=== PATIENT | male | born 2000 | race Caucasian/White ===

== ENCOUNTER → 2021-09-27 14:48 | Outpatient (CLI) | payer BC, SELFPAY ==
--- NOTE | ~2021-09-27 | XR_ITS ---
XR abdomen/kub 1V 09/27/2021 15:37 INDICATION: Abdominal pain TECHNIQUE: KUB COMPARISON: None FINDINGS: Bowel gas pattern is normal. Moderate colonic fecal loading. There is no evidence of free a ir, mass, organomegaly, ascites or obstruction. No abnormal calculi are seen. The bones appear inta ct. IMPRESSION: 1: No acute abdominal abnormality identified. Reviewed, dictated and finalized at location A.
== END ==
PROVIDERS: PCP Family Medicine; Visit Provider Physician Assistant Medical
DX: R10.9 Unspecified abdominal pain (principal)
CPT/HCPCS: 74018

== ENCOUNTER → 2022-04-06 15:40 | Outpatient (CLI) | payer BC, SELFPAY ==
--- NOTE | ~2022-04-06 | XR_ITS ---
EXAMINATION: XR chest 2V 04/06/2022 15:49 INDICATION: Chest pain PROCEDURE: 2 view chest COMPARISON: No prior studies for comparison. FINDINGS: The lungs are clear. The cardiomediastinal silhouette is within normal limits. There are no pleural effusions. There is no pneumothorax suspected. IMPRESSION: 1: NO ACUTE CARDIOPULMONARY DISEASE. Reviewed, dictated and finalized at location B. [employer]
== END ==
PROVIDERS: PCP Family Medicine; Visit Provider Physician Assistant
DX: R07.89 Other chest pain (principal)
CPT/HCPCS: 71046

== ENCOUNTER → 2022-07-08 11:24 | Outpatient (CLI) | payer BC, SELFPAY ==
--- NOTE | ~2022-07-08 | CT_ITS ---
Non-contrast Head CT History: Headache Technique: Axial non-contrast imaging of the brain was performed. Dose reduction technique was used on this scan by utilizing automated exposure control and iterative reconstruction technique. The dose -length product (DLP) was 599.57 mGy-cm. Findings: There is no evidence of intracranial hemorrhage, mass lesion, or acute infarct. Brain par enchyma appears normal. The ventricles and subarachnoid spaces are normal in size. The calvarium ap pears normal. There is extensive bilateral ethmoid and frontal sinus disease. The remaining visualize d paranasal sinuses and mastoid air cells are clear. Impression: No intracranial abnormality seen. Sinus disease, as above. Reviewed, dictated and finalized at [facility]. TENDER Impression: No intracranial abnormality seen. Sinus disease, as above.
== END ==
PROVIDERS: PCP Family Medicine; Visit Provider Physician Assistant
DX: R51.9 Headache, unspecified (principal)
CPT/HCPCS: 70450

== ENCOUNTER 2022-12-16 16:58 | Emergency (ER) | payer BC, SELFPAY ==
[2022-12-16 17:07] VITALS: BP 115/86; PULSE 79; RESP 20; TEMP 37.4; O2SAT 97
--- NOTE | 2022-12-16 17:20 | ED.WOUNDLAC ---
HPI - Wound/Laceration General Chief Complaint: Wound/Laceration Stated Complaint: DOG BITE Time Seen by Provider: 12/16/22 17:20 Source: patient Mode of arrival: ambulatory Limitations: no limitations History of Present Illness HPI narrative: 22-year-old male presents stating that last night while at a friend's house the dog had his mouth on the patient's left wrist. Patient states that he thought he had a dog bite but checked his skin and he could see no break in the skin. He states he talked about the situation with several his friends and getting conflicting advice. States he has been told he needs antibiotic and rabies vaccine and other people told him that he needs no treatment due to no break in skin. Tetanus up-to-date. All systems reviewed and negative except as noted above. Related Data Home Medications Medication Instructions Recorded Confirmed No Home Medications 12/16/22 12/16/22 Allergies Allergy/AdvReac Type Severity Reaction Status Date / Time No Known Allergies Allergy Verified 12/16/22 17:04 Review of Systems Review of Systems: CONSTITUTIONAL: Denies fever, chills, or sweats. EYES: Denies visual changes, redness, or discharge. ENT: Denies rhinorrhea, congestion, sore throat, or otalgia. CARDIOVASCULAR: Denies chest pain, palpitations, or edema. RESPIRATORY: Denies cough or dyspnea. GASTROINTESTINAL: Denies abdominal pain, nausea, vomiting, or diarrhea. GENITOURINARY: Denies dysuria or hematuria. SKIN: Denies rash or itching. MUSCULOSKELETAL: Denies back pain, joint pain, or myalgia. NEUROLOGIC: Denies headache, numbness, or weakness. PSYCHIATRIC: Denies anxiety or depression. All other systems reviewed are negative, except as documented in HPI. [facility] Past Medical History Medical History Encounter for colonoscopy following colon polyp removal Eustachian tube dysfunction Healthy adult Right flank pain Family History Family History Mother Healthy adult Father Healthy adult Other Asthma Social History Social History Smoking status: Never smoker Second hand tobacco smoke exposure: No Alcohol intake: current Drinks per week: 1 Substance use: never Substance use type: does not use Lack of Transportation: No Lack of Food: Never True Current Housing: I Have Housing Concerned About Future Housing: No Difficulty Paying Gas/Electric Bills: No Difficulty Paying for Meds: No Currently Unemployed: Decline to Answer Education: High School Diploma/GED Difficulty w/ Childcare or Family Care: No Living arrangements: with family Occupation/Education: student Gender identity (if verbalized by the patient): Male Spiritual care concerns: No Agree to blood products: Yes Comments At time of signature, agree with nursing past medical, surgical, social and family history. There is no relevant family history pertinent to the presenting complaint. Exam Narrative: GENERAL: This is a well-nourished, well-developed patient, in no apparent distress. HEAD: normocephalic, atraumatic. EYES: PERRL. Sclera clear/white. Vision is grossly intact. EARS: External ears normal NOSE: External nose normal NECK: Neck supple, non-tender without lymphadenopathy, masses or thyromegaly. CARDIOVASCULAR: Regular rate and rhythm without murmurs, gallops, or rubs. RESPIRATORY: Clear to auscultation. Breath sounds equal bilaterally. No wheezes, rales, or rhonchi. SKIN: warm, Dry, intact with no suspicious lesions or rash, good texture and turgor. No abnormalities noted to left wrist concerning for dog bite. NEURO: awake, alert, and oriented to person, place and time. There were no obvious focal neurologic abnormalities. EXTREMITIES: No joint tenderness, effusion, or edema noted. Course Course Level of Care:
== END 2022-12-16 17:29 | disposition home or self-care (01) ==
PROVIDERS: Emergency Provider Nurse Practitioner Family; PCP Family Medicine
DX: Z03.89 Encounter for observation for other suspected diseases and conditions ruled out (principal)
CPT/HCPCS: 99211; G0463

== ENCOUNTER 2023-02-08 09:56 | Emergency (ER) | payer BC, SELFPAY ==
[2023-02-08 10:46] VITALS: BP 104/73; PULSE 92; RESP 16; TEMP 36.8; O2SAT 100
--- NOTE | 2023-02-08 12:03 | ED.URI ---
HPI - URI/Sore Throat General Chief Complaint: Upper Respiratory Infection Stated Complaint: SCRATCHY THROAT Time Seen by Provider: 02/08/23 11:56 Source: patient and RN notes reviewed Mode of arrival: ambulatory Limitations: no limitations History of Present Illness HPI Narrative: Patient presents today complaining of scratchy throat, nasal congestion, and fatigue since yesterday afternoon. Denies fever, cough, rhinorrhea, known sick contacts. Denies any pain. He has tried no [id number] treatment prior to arrival. States he has been traveling on airplanes over the past couple of days. Related Data Home Medications Medication Instructions Recorded Confirmed No Home Medications 12/16/22 02/08/23 Allergies Allergy/AdvReac Type Severity Reaction Status Date / Time No Known Allergies Allergy Verified 02/08/23 10:38 Review of Systems Review of Systems: CONSTITUTIONAL: Denies body aches, fever, chills, or sweats.+ fatigue EYES: Denies visual changes, redness, or discharge. ENT: Denies rhinorrhea, sore throat, or otalgia.+ scratchy throat, nasal congestion CARDIOVASCULAR: Denies chest pain, palpitations, or edema. RESPIRATORY: Denies cough or dyspnea. GASTROINTESTINAL: Denies abdominal pain, nausea, vomiting, or diarrhea. GENITOURINARY: Denies dysuria or hematuria. SKIN: Denies rash, itching, or wounds. MUSCULOSKELETAL: Denies back pain, joint pain, or myalgia. NEUROLOGIC: Denies headache, numbness, tingling, or weakness. PSYCH: Denies depression or anxiety. [facility] Past Medical History Medical History Encounter for colonoscopy following colon polyp removal Eustachian tube dysfunction Healthy adult Right flank pain Family History Family History Mother Healthy adult Father Healthy adult Other Asthma Social History Social History Smoking status: Never smoker Second hand tobacco smoke exposure: No Alcohol intake: current Drinks per week: 1 Substance use: never Substance use type: does not use Lack of Transportation: No Lack of Food: Never True Current Housing: I Have Housing Concerned About Future Housing: No Difficulty Paying Gas/Electric Bills: No Difficulty Paying for Meds: No Currently Unemployed: Decline to Answer Education: High School Diploma/GED Difficulty w/ Childcare or Family Care: No Living arrangements: with family Occupation/Education: student Gender identity (if verbalized by the patient): Male Spiritual care concerns: No Agree to blood products: Yes Comments At time of signature, I have reviewed and agree with nursing past medical, surgical, social and family history unless otherwise noted. Please see nursing chart for further information. There is no relevant family history pertinent to the presenting complaint Exam Narrative: GENERAL: Well-appearing, well-nourished, and in no acute distress. HEAD: Normocephalic, atraumatic. EYES: EOMI. No redness or drainage. Conjunctivae normal. ENT: Mucous membranes pink and moist. Nares mildly congested. No rhinorrhea. TMs normal bilaterally. Throat mildly erythematous without edema or exudate. Uvula midline. NECK: Normal AROM. Supple. No lymphadenopathy. CHEST: No respiratory distress. Clear to auscultation. HEART: Regular rate and rhythm. No murmur appreciated. Normal peripheral pulses. EXTREMITIES: Normal range of motion. No edema. SKIN: Warm, dry, no rash. Capillary refill normal. Normal skin turgor. NEURO: No focal deficits. Alert and oriented x3. Gait steady. PSYCH: Normal affect. No signs of depression or anxiety. Course Course Level of Care: Express Care Visit Vital Signs Vital signs: Vital Signs Temperature 98.2 F 02/08/23 10:46 Pulse Rate 92 02/08/23 10:46 Respiratory Rate
== END 2023-02-08 12:08 | disposition home or self-care (01) ==
PROVIDERS: Emergency Provider Nurse Practitioner; PCP Family Medicine
DX: J06.9 Acute upper respiratory infection, unspecified (principal); Z20.822 Contact with and (suspected) exposure to COVID-19
CPT/HCPCS: 87426; 99213; C9803; G0463

== ENCOUNTER 2023-11-21 10:19 | Outpatient (CLI) | payer BC, SELFPAY ==
--- NOTE | 2023-11-21 11:30 | NEURO_ITS ---
Impression: # Complains of left upper extremity numbness. # Normal Nerve Conduction Study with normal F waves. # No Carpal Tunnel Syndrome or ulnar neuropathy. # Normal needle/EMG exam of proximal and distal muscles.. #clinical correlation recommended. Nerve Conduction Studies Anti Sensory Summary Table Stim Site NR Peak (ms) P-T Amp (?V) Site1 Site2 Delta-P (ms) Dist (cm) Seth (m/s) Left Median Anti Sensory (2-3nd Digit) Wrist 3.2 75.7 Wrist 2-3nd Digit 3.2 14.0 44 Wrist 3.2 68.5 Wrist 2-3nd Digit 3.2 14.0 44 Left Radial Anti Sensory (Base 1st Digit) Wrist 2.3 20.1 Wrist Base 1st Digit 2.3 0.0 Left Ulnar Anti Sensory (5th Digit) Wrist 3.2 85.7 Wrist 5th Digit 3.2 14.0 44 Motor Summary Table Stim Site NR Onset (ms) O-P Amp (mV) Site1 Site2 Delta-0 (ms) Dist (cm) Seth (m/s) Left Median Motor (Abd Poll Brev) Wrist 3.0 3.5 Elbow Wrist 5.2 31.0 60 Elbow 8.2 8.9 Left Ulnar Motor (Abd Dig Minimi) Wrist 3.0 10.0 A Elbow Wrist 4.9 29.0 59 A Elbow 7.9 8.4 F Wave Studies NR F-Lat (ms) L-R F-Lat (ms) Left Median (Mrkrs) (Abd Poll Brev) 28.81 Left Ulnar (Mrkrs) (Abd Dig Min) 27.89 EMG Side Muscle Nerve Root Ins Act Fibs Amp Dur Recrt Comment Left 1stDorInt Ulnar C8-T1 Nml Nml Nml Nml Nml Left Ext Indicis Radial (Post Int) C7-8 Nml Nml Nml Nml Nml Left Ext Digitorum Radial (Post Int) C7-8 Nml Nml Nml Nml Nml Left BrachioRad Radial C5-6 Nml Nml Nml Nml Nml Left PronatorTeres Median C6-7 Nml Nml Nml Nml Nml Left Abd Poll Brev Median C8-T1 Nml Nml Nml Nml Nml Left ABD Dig Min Ulnar C8-T1 Nml Nml Nml Nml Nml Left Biceps Musculocut C5-6 Nml Nml Nml Nml Nml Left Triceps Radial C6-7-8 Nml Nml Nml Nml Nml Left Deltoid Axillary C5-6 Nml Nml Nml Nml Nml MTDD
== END 2023-11-21 10:20 | disposition home or self-care (01) ==
LOC: ANHNEURO 10:20
PROVIDERS: PCP Family Medicine; Visit Provider Physician Assistant Medical
DX: R20.0 Anesthesia of skin (principal); R20.2 Paresthesia of skin
CPT/HCPCS: 95886; 95909

== ENCOUNTER 2024-02-01 14:30 | Outpatient (RCR) | payer BC, SELFPAY ==
--- NOTE | 2023-12-14 16:02 | OTOPEVAL1 ---
Assessment and note entered by Edil Kinney, KAITLYNN/Daisha, CHT Evaluation Information Assessment Status Evaluation Diagnosis Anesthesia of skin, Paresthesia of skin Subjective Information Patient reports onset of paresthesia symptoms July of this year. He reports he spends a lot of time at a computer and on his phone. He has been doing some stretches, which he states has helped his symptoms, but he appears to have reached a plateau with these. He reports he notices his symptoms are activity dependent, stating when he's using his arms for a prolonged activity, he feels the onset of tingling. He reports no night symptoms and wakes up feeling good also. No pain at rest. He reports his pain can get up to 1-2/10. He is more concerned with the paresthesia vs. pain. Reported Pain Level Pain Score 0: Self Report Assessment OT Clinical Summary Patient referred to OT with dx of paresthesia of bilateral hands. Assessment today positive for left UE ulnar compression at the elbow and median nerve compression at the carpal tunnel. Ulnar worse than median. Unable to recreate his symptoms on the right UE today. Issued nerve and tendon glides as well as wrist and developer prover mechanical strengthening. Discussed at length the importance of work station ergonomics also. Continued skilled OT indicated to progress HEP, continued strengthening, ergonomics education as well as workstation adaptations PRN to facilitate optimal functional use and strength of BUEs. Plan of Care Interventions Therapeutic Exercise,Manual Therapy,Self-Care/Home Management,Ultrasound,Paraffin OT Services Indicated Yes Treatment Frequency and 1x/week for 4 visits Duration These treatments will address the objective and functional deficits as defined above. The patient will be advanced safely and appropriately in order for the patient to progress towards his/her prior level of function. Additional exercises will be introduced and as well as a comprehensive home exercise program upon discharge, if needed, ?to ensure carryover of functional gains achieved in the clinic. This treatment plan has been reviewed and agreement upon by the patient.
--- NOTE | 2023-12-14 16:02 | OPREHPOC ---
Outpatient Therapy Plan of Care This is a Multidisciplinary Plan of Care that may contain components documented by all disciplines (PT, OT, and ST.) OT Problem 1 OT Problem #1 Knowledge Deficit OT Goal 1 Goal 1. Patient to be independent with HEP. Target Visit 4 OT Problem 2 OT Problem #2 Impaired Sensation OT Goal 1 Goal 1. Patient to be able to complete left ulnar tension test with a negative result. 2. patient to be able to complete left carpal compression test with a negative result. Target Visit 4 OT Problem 3 OT Problem #3 Impaired Strength OT Goal 1 Goal 1. Increase right manager technology strength from 69 to 74 lbs. 2. Increase left manager technology strength from 63 to 68 lbs. 3. Be able to complete bilateral wrist strengthening with 5 lb. free weights x10 reps without pain. Target Visit 4
--- NOTE | 2024-01-05 10:24 | OTOPPROG ---
Assessment and note entered by Edil Kinney, KAITLYNN/Daisha, CHT OT Progress Update 01/05/24 Assessment Status Progress Diagnosis Anesthesia of skin, Paresthesia of skin Subjective Information Patient reports overall improvements. He reports he is experiencing less paresthesia and able to do his exercises without onset of paresthesia. He reports he continues to experience occasional onset of paresthesia in both arms throughout the day, but that this has greatly improved overall. He has changed his computer workstation to be more ergonomically friendly and has been trying to spend less time at the computer as well. He reports no night symptoms. Pain has reduced from 1-2/10 to 0/10. Assessment OT Clinical Summary Patient referred to OT with dx of paresthesia of bilateral hands. He continues to report some residual paresthesia intermittently throughout the day. Unable to recreate his symptoms today. Nerve tension and compression tests were all negative. Upgraded his nerve glide HEP. Continued skilled OT indicated to progress HEP, continued strengthening, ergonomics education as well as workstation adaptations PRN to facilitate optimal functional use and strength of BUEs. Plan of Care Interventions Therapeutic Exercise,Manual Therapy,Self-Care/Home Management,Ultrasound,Paraffin OT Services Indicated Yes Treatment Frequency and 1x/week for 3 visits Duration These treatments will address the objective and functional deficits as defined above. The patient will be advanced safely and appropriately in order for the patient to progress towards his/her prior level of function. Additional exercises will be introduced and as well as a comprehensive home exercise program upon discharge, if needed, ?to ensure carryover of functional gains achieved in the clinic. This treatment plan has been reviewed and agreement upon by the patient.
--- NOTE | 2024-01-05 10:25 | OPREHPOC ---
Outpatient Therapy Plan of Care This is a Multidisciplinary Plan of Care that may contain components documented by all disciplines (PT, OT, and ST.) OT Problem 1 OT Problem #1 Knowledge Deficit OT Goal 1 Goal / Goal Update 1. Patient to be independent with HEP. ---OT POC UPDATE 01/05/24--- 1. Met, continue as HEP is progressed Target Visit 7 OT Problem 2 OT Problem #2 Impaired Sensation OT Goal 1 Goal / Goal Update 1. Patient to be able to complete left ulnar tension test with a negative result. 2. patient to be able to complete left carpal compression test with a negative result. ---OT POC UPDATE 01/05/24--- 1. Met 2. Met Target Visit 7 OT Problem 3 OT Problem #3 Impaired Strength OT Goal 1 Goal / Goal Update 1. Increase right director of event marketing strength from 69 to 74 lbs. 2. Increase left director of event marketing strength from 63 to 68 lbs. 3. Be able to complete bilateral wrist strengthening with 5 lb. free weights x10 reps without pain. ---OT POC UPDATE 01/05/24--- 1. Met 2. Met 3. Met Target Visit 7 OT Problem 4 OT Problem #4 Impaired Flexibility OT Goal 1 Goal / Goal Update NEW GOAL: 1. Patient to report no onset of paresthesia. Target Visit 7
--- NOTE | 2024-02-01 15:19 | OTOPPROG ---
Assessment and note entered by KAITLYNN Lao/Daisha, CHT Evaluation Information Diagnosis Anesthesia of skin, Paresthesia of skin Subjective Information Patient reports continued improvements. He reports he doesn't recall the last time he had felt paresthesia in either arm. He reports no night symptoms. He states he has been experiencing some pain in his right wrist, particularly with repetitive motions, such as stirring and typing. He reports this pain as 1/10. Assessment OT Clinical Summary Patient referred to OT with dx of paresthesia of bilateral hands. Patient no longer experiencing paresthesia. He has been completing nerve glides without paresthesia or pain. He reports various other complaints that don't necessarily involve the nerves. He is still wearing splints at night also. He was not comfortable with being discharged due to experiencing residual wrist pain and different pains with his strengthening exercises. We discussed the following plan - Patient to wean off the braces at night over the next 2 weeks. Patient to continue strengthening, postural work, and working on his ergonomics. We have scheduled a follow up for 1 month from now to re-assess his progress with the goal of discharging. Plan of Care Interventions Therapeutic Exercise,Manual Therapy,Self-Care/Home Management,Ultrasound,Paraffin OT Services Indicated Yes Treatment Frequency and Follow up in 4 weeks Duration These treatments will address the objective and functional deficits as defined above. The patient will be advanced safely and appropriately in order for the patient to progress towards his/her prior level of function. Additional exercises will be introduced and as well as a comprehensive home exercise program upon discharge, if needed, ?to ensure carryover of functional gains achieved in the clinic. This treatment plan has been reviewed and agreement upon by the patient.
== END 2024-03-13 23:59 | disposition home or self-care (01) ==
LOC: ANHGOSHOT 14:30
PROVIDERS: PCP Family Medicine; Visit Provider Physician Assistant Medical
DX: R20.0 Anesthesia of skin (principal); R20.2 Paresthesia of skin
CPT/HCPCS: 97018; 97035; 97110; 97166; 97530

== ENCOUNTER 2024-04-09 11:00 | Outpatient (RCR) | payer BC, SELFPAY ==
--- NOTE | 2024-03-22 08:28 | PCOTNOTE ---
Late note from yesterday, 03/21/24. Patient arrived to wrong location for appointment. Rescheduled him for 03/22/24.
--- NOTE | 2024-03-22 08:29 | PCOTNOTE ---
Patient did not show to re-evaluation this AM. Called patient and left voicemail regarding the missed appointment.
--- NOTE | 2024-04-09 11:51 | OTOPDC ---
Assessment and note entered by Edil Kinney, KAITLYNN/Daisha, CHT Evaluation Information Assessment Status Discharge Diagnosis Anesthesia of skin, Paresthesia of skin Subjective Information Patient reports his tingling issues have resolved - he is pleased with this progress. He had some residual burning in his fingers and this has resolved as well. His biggest complaint at this time is intermittent wrist pain, exacerbated by typing, particularly on a lap top. Reported Pain Level Pain Score 0: Self Report Additional Pain Score Comments Patient reporting no pain at rest, no pain at night, no pain waking up in the morning. 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 Pain gets up to 1-2/10, he does a round of exercises and this helps. Assessment OT Clinical Summary Patient referred to OT with dx of paresthesia of bilateral hands. Nerve compression symptoms have resolved. His biggest complaint is intermittent volar wrist pain (he points to the carpal tunnel area) with typing. It appears he is experiencing tenosynovitis of the finger flexors. Reviewed HEP - tendon glides, stretching, ice, and taping for relief. He states the wrist pain is slowly getting better, however he continues to experience it after a work day. He verbalizes excellent understanding of all materials. He is in agreement with discharge today. D/C OT with patient independent with HEP. Plan of Care OT Services Indicated No
== END 2024-04-09 13:25 | disposition home or self-care (01) ==
LOC: ANHOT 11:00
PROVIDERS: PCP Family Medicine; Visit Provider Physician Assistant Medical
DX: R20.0 Anesthesia of skin (principal); R20.2 Paresthesia of skin
CPT/HCPCS: 97110

== ENCOUNTER 2024-08-14 11:57 | Outpatient (CLI) | payer OTHER, SELFPAY ==
--- NOTE | ~2024-08-14 | XR_ITS ---
Lumbosacral Spine: AP and lateral views Clinical History: Pain Findings: There is mild levoscoliosis of the thoracolumbar spine. No fracture or subluxation evident. The intervertebral disc spaces are preserved. The sacroiliac joints are normally outlined. Impression: Levoscoliosis. Reviewed, dictated and finalized at [facility]. Impression: Levoscoliosis.
--- NOTE | ~2024-08-14 | XR_ITS ---
Cervical Spine: AP, lateral, open-mouth views Clinical History: Pain Findings: There is mild reversal of the normal cervical lordosis. The vertebral bodies and posterior elements appear intact. The intervertebral disc spaces are well maintained. Pre-vertebral soft tiss ues are unremarkable. Impression: Mild reversal of the normal cervical lordosis, otherwise unremarkable exam. Reviewed, dictated and finalized at [facility]. Impression: Mild reversal of the normal cervical lordosis, otherwise unremarkable exam.
== END 2024-08-14 11:58 | disposition home or self-care (01) ==
LOC: MICIMG 12:00
PROVIDERS: PCP Family Medicine; Visit Provider Student in an Organized Health Care Education/Training Program
DX: M54.50 Low back pain, unspecified (principal); M54.2 Cervicalgia
CPT/HCPCS: 72040; 72100

== ENCOUNTER 2024-11-27 19:03 | Emergency (ER) | payer OTHER, SELFPAY ==
[2024-11-27 19:13] VITALS: BP 113/84; PULSE 90; RESP 16; TEMP 37.6; O2SAT 100
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
== END 2024-11-27 19:37 | disposition home or self-care (01) ==
PROVIDERS: PCP Family Medicine
DX: S16.1XXA Strain of muscle, fascia and tendon at neck level, initial encounter (principal); V43.52XA Car driver injured in collision with other type car in traffic accident, initial encounter
CPT/HCPCS: 99213; G0463